=== PATIENT | female | born 1985 | race Caucasian/White ===

== ENCOUNTER 2019-04-19 17:24 | Outpatient (CLI) | payer MEDICAID ==
--- NOTE | 2019-04-19 19:58 | Ultrasound Report ---
Reason: TEST POSITIVE Procedure Date: 04/19/2019 Accession Number: [id number] / [id number] Procedure: US - OB First Trimester CPT Code: Final Report FULL RESULT: EXAM: FIRST TRIMESTER OBSTETRIC ULTRASOUND (Less than 11 weeks) EXAM DATE: 04/19/2019 06:10 PM. CLINICAL HISTORY: Size and dates. LMP: 02/19/2019. COMPARISONS: None. TECHNIQUE: Transabdominal and transvaginal ultrasound examination with static image documentation. CLINICAL DATES: EGA 8 weeks 3 days with KRISTI 11/26/2019 based on LMP. ASSESSMENT: Gestational Sac: Single intrauterine. Mean gestational sac diameter: 33.7 mm = 8 weeks 4 days. Embryo: CRL (crown-rump length) 20.6 mm = 8 weeks 5 days. Cardiac activity: 172 beats per minute. Yolk sac: 5.4 mm. Amniotic fluid: Not accurately assessed at this gestational age. Early placenta: Not visible at this gestational age. Other: Perigestational fluid collection measuring 19 x 18 mm. MATERNAL STRUCTURES: Uterus: Anteverted. Unremarkable. Cervix: Closed. Right Ovary/Adnexa: The ovary measures 2.4 x 1.6 x 2.0 cm, volume 4.1 cc. Unremarkable. Left Ovary/Adnexa: The ovary measures 4.0 x 2.5 x 1.9 cm, volume 9.9 cc. Unremarkable. Corpus luteum measuring 1.8 x 1.8 x 1.2 cm. Free Fluid: None. Other: None. IMPRESSION: 1. Single viable intrauterine at EGA 8 weeks 5 days with KRISTI 11/24/2019 based on crown-rump length, which is concordant with clinical dates. 2. Assigned dating is KRISTI 11/26/2019 based on current ultrasound. RADIA
== END 2019-04-19 17:25 | disposition home or self-care (01) ==
LOC: DI 17:24
PROVIDERS: ATTEND Obstetrics & Gynecology
DX: Z32.01 Encounter for pregnancy test, result positive (principal)
CPT/HCPCS: 76801; 76817

== ENCOUNTER 2019-05-08 08:00 | Outpatient (CLI) | payer MEDICAID ==
[2019-05-08 15:29] LABS: MUDS CUTOFF CONCENTRATIONS CUTOFF CONC BELOW:
[2019-05-08 15:55] LABS: BILIRUBIN,URINE NEGATIVE (NEGATIVE); GLUCOSE, URINE (UA) NEGATIVE (NEGATIVE); KETONES,URINE (UA) NEGATIVE (NEGATIVE); LEUKOCYTE ESTERASE, URINE NEGATIVE (NEGATIVE); NITRITE,URINE NEGATIVE (NEGATIVE); OCCULT BLOOD,URINE NEGATIVE (NEGATIVE); PROTEIN,URINE NEGATIVE (NEGATIVE); UROBILINOGEN,URINE 0.2 (NORMAL) E.U./dL (NORMAL)
[2019-05-08 16:01] LABS: CLARITY,URINE CLOUDY (CLEAR)
[2019-05-08 16:13] LABS: BACTERIA,URINE None Seen /HPF (None Seen); MUCUS,URINE Moderate Strands; RBC,URINE None Seen /HPF (0-5); SQUAMOUS EPITHELIAL CELL,UR FEW Squamous (<= Few)
[2019-05-08 16:14] LABS: AMPHETAMINE SCREEN,URINE NEGATIVE (NEGATIVE); BENZODIAZEPINES SCREEN, URINE NEGATIVE (NEGATIVE); COCAINE SCREEN URINE NEGATIVE (NEGATIVE); METHADONE SCREEN, URINE NEGATIVE (NEGATIVE); METHAMPHETAMINES SCREEN, URINE NEGATIVE (NEGATIVE); OPIATE SCREEN, URINE NEGATIVE (NEGATIVE); OXYCODONE SCREEN, URINE NEGATIVE (NEGATIVE); PROPOXYPHENE SCREEN, URINE NEGATIVE (NEGATIVE); TRICYCLIC ANTIDEPRESSANT,URINE NEGATIVE (NEGATIVE)
[2019-05-08 20:59] LABS: TRICHOMONAS VAGINALIS DNA NEGATIVE (NEGATIVE)
== END 2019-05-08 23:59 | disposition home or self-care (01) ==
LOC: LAB.R 08:00
PROVIDERS: ATTEND Nurse Practitioner Obstetrics & Gynecology
DX: Z36.89 Encounter for other specified antenatal screening (principal)
CPT/HCPCS: 80306; 81001; 87086; 87491; 87591; 87661

== ENCOUNTER 2019-05-08 10:58 | Outpatient (CLI) | payer MEDICAID ==
[2019-05-08 11:47] LABS: BASOPHILS # (AUTO) 0.1 10^3/uL (0.0-0.1); BASOPHILS % (AUTO) 0.6 %; EOSINOPHILS # (AUTO) 0.3 10^3/uL (0.0-0.7); EOSINOPHILS % (AUTO) 3.4 %; HGB - HEMOGLOBIN 12.4 g/dL (12.0-16.0); LYMPHOCYTES # (AUTO) 1.5 10^3/uL (1.5-3.5); LYMPHOCYTES % (AUTO) 18.7 %; MEAN CORPUSCULAR HEMOGLOBIN 31.4 pg (27.0-31.0); MEAN CORPUSCULAR HGB CONC 34.9 g/dL (32.0-36.0); MEAN CORPUSCULAR VOLUME 89.9 fL (81.0-99.0); MEAN PLATELET VOLUME 11.2 fL (7.9-10.8); MONOCYTES # (AUTO) 0.5 10^3/uL (0.0-1.0); MONOCYTES % (AUTO) 5.9 %; NEUTROPHILS # (AUTO) 5.8 10^3/uL (1.5-6.6); PLT - PLATELET COUNT 245 10^3/uL (130-450); RED BLOOD COUNT 3.95 10^6/uL (4.20-5.40); RED CELL DISTRIBUTION WIDTH 12.9 % (12.0-15.0); WHITE BLOOD COUNT 8.1 x10^3/uL (4.8-10.8)
[2019-05-11 10:46] LABS: HIV AG/AB 4TH GEN NON-REACTIVE (NON-REACTIVE)
[2019-05-11 12:36] LABS: HEPATITIS B SURFACE ANTIGEN NON-REACTIVE (NON-REACTIVE); HEPATITIS C ANTIBODY NON-REACTIVE (NON-REACTIVE)
== END 2019-05-08 10:59 | disposition home or self-care (01) ==
LOC: LAB 10:58
PROVIDERS: ATTEND Nurse Practitioner Obstetrics & Gynecology
DX: Z36.89 Encounter for other specified antenatal screening (principal); Z36.8A Encounter for antenatal screening for other genetic defects
CPT/HCPCS: 36415; 80306; 81001; 81220; 81329; 81599; 85025; 86592; 86762; 86803; 86850; 86900; 86901; 87340; 87389; 87491; 87591; 87661

== ENCOUNTER 2019-06-21 08:00 | Outpatient (CLI) | payer MEDICAID | END 2019-06-21 23:59 | disposition home or self-care (01) | LOC: LAB 08:00 | PROVIDERS: ATTEND Obstetrics & Gynecology | DX: Z36.0 Encounter for antenatal screening for chromosomal anomalies (principal); Z36.89 Encounter for other specified antenatal screening | CPT/HCPCS: 36415; 81511; 81599 ==

== ENCOUNTER 2019-07-08 09:59 | Outpatient (CLI) | payer MEDICAID ==
--- NOTE | 2019-07-08 14:13 | Ultrasound Report ---
Reason: SUPERVISION OF NORMAL MULTIGRAVIDA PREG, 2ND TRIME Procedure Date: 07/08/2019 Accession Number: [id number] / [id number] Procedure: US - OB Detailed Eval CPT Code: Final Report FULL RESULT: EXAM: COMPLETE OBSTETRICAL ULTRASOUND EXAM DATE: 07/08/2019 12:59 PM. CLINICAL HISTORY: anatomic survey. COMPARISON: OB FIRST TRIMESTER 04/19/2019 5:36 PM. TECHNIQUE: Real-time sonographic evaluation of the fetus performed by the coin machine supervisor. Multiple hostess party sales representative static images were saved for review. DATING: Established EGA 19 weeks 6 days with KRISTI 11/26/2019 based on LMP. EGA 20 weeks 1 day with KRISTI 11/24/2019 based on the current ultrasound. GENERAL EVALUATION [place] . Cardiac activity: 154 bpm. movement: Visualized. Presentation: Variable. Placenta: Posterior position. No evidence for previa. Umbilical cord: 3 vessel cord. Central placental cord origin. Amniotic fluid: Subjectively normal. MVP 4.7 cm with JOSELYN 16.8 cm. BIOMETRY Bi-Parietal Diameter (BPD): 4.7 cm, 20 weeks 1 day Head Circumference (HC): 17.7 cm, 20 weeks 1 day Abdominal Circumference (AC): 14.7 cm, 20 weeks 0 days Femur Length (FL): 3.2 cm, 20 weeks 0 days Estimated Weight: 325 g, 53rd percentile for 19 weeks 6 days. ANATOMY The intracranial structures, profile, face/nose/lips, spine, 4 chamber heart and outflow tracts, stomach, abdominal wall and cord insertion, diaphragm, kidneys, bladder, and extremities were visualized and demonstrate no abnormality. MATERNAL STRUCTURES Uterus: Unremarkable. Cervix: Long and closed. Transabdominal length 4.0 cm. Right ovary/adnexa: Unremarkable. Left ovary/adnexa: Unremarkable. Free fluid: None. IMPRESSION: 1. Hudson live intrauterine with gestational age 19 weeks 6 days based on LMP. 2. Estimated weight is within expected limits for assigned dating. 3. Normal anatomic survey. No anatomic abnormalities are detected at this time. RADIA
== END 2019-07-08 10:00 | disposition home or self-care (01) ==
LOC: DI 09:59
PROVIDERS: ATTEND Obstetrics & Gynecology
DX: Z34.82 Encounter for supervision of other normal pregnancy, second trimester (principal)
CPT/HCPCS: 76811

== ENCOUNTER 2019-08-19 09:46 | Outpatient (CLI) | payer MEDICAID ==
[2019-08-19 11:17] LABS: HGB - HEMOGLOBIN 11.9 g/dL (12.0-16.0); MEAN CORPUSCULAR HEMOGLOBIN 30.9 pg (27.0-31.0); MEAN CORPUSCULAR HGB CONC 33.2 g/dL (32.0-36.0); MEAN PLATELET VOLUME 11.2 fL (7.9-10.8); RED BLOOD COUNT 3.85 10^6/uL (4.20-5.40); RED CELL DISTRIBUTION WIDTH 13.6 % (12.0-15.0); WHITE BLOOD COUNT 10.6 x10^3/uL (4.8-10.8)
== END 2019-08-19 09:47 | disposition home or self-care (01) ==
LOC: LAB 09:46
PROVIDERS: ATTEND Nurse Practitioner Obstetrics & Gynecology
DX: Z36.89 Encounter for other specified antenatal screening (principal)
CPT/HCPCS: 36415; 82950; 85027; 86850

== ENCOUNTER 2019-10-28 07:00 | Outpatient (CLI) | payer MEDICAID, OTHER ==
[2019-10-28 22:49] LABS: TRICHOMONAS VAGINALIS DNA NEGATIVE (NEGATIVE)
== END 2019-10-28 23:59 | disposition home or self-care (01) ==
LOC: LAB.R 07:00
PROVIDERS: ATTEND Advanced Practice Midwife
DX: Z34.90 Encounter for supervision of normal pregnancy, unspecified, unspecified trimester (principal); Z36.85 Encounter for antenatal screening for Streptococcus B
CPT/HCPCS: 87491; 87591; 87661; 87797

== ENCOUNTER 2019-12-03 06:22 | Inpatient (IN) | payer OTHER, MEDICAID ==
[2019-12-03] MEDS ORDERED: SODIUM CHLORIDE FLUSH 0.9% 10 ML SYRINGE IVP PRN ×2 (06:26→15:12)
[2019-12-03] MEDS ORDERED: miSOPROStoL 200 MCG TABLET ONE (07:31)
[2019-12-03] MEDS ORDERED: LIDOCAINE-MPF 1% 30 ML VIAL ONE (07:31)
[2019-12-03] MEDS ORDERED: OXYTOCIN/SODIUM CHLORIDE 500 ML IV PRN (07:32)
[2019-12-03] MEDS ORDERED: TERBUTALINE 1 MG/ML VIAL SUBQ ONE (07:32)
[2019-12-03] MEDS ORDERED: MINERAL OIL LIGHT 10 ML MC PRN (07:32)
[2019-12-03] MEDS ORDERED: CARBOPROST TROMETHAMINE 250 MCG/ML AMP IM PRN (07:32)
[2019-12-03] MEDS ORDERED: MINERAL OIL LIGHT 10 ML MC ONE (07:32)
[2019-12-03] MEDS ORDERED: miSOPROStoL 200 MCG TABLET PR PRN (07:32)
[2019-12-03] MEDS ORDERED: METHYLERGONOVINE 0.2 MG/ML VIAL IM PRN (07:32)
[2019-12-03] MEDS ORDERED: TRANEXAMIC ACID 1,000 MG in SODIUM CHLORIDE 0.9% 100ML 100 ML IV PRN (07:32)
[2019-12-03] MEDS ORDERED: OXYTOCIN/SODIUM CHLORIDE 500 ML IV ONE (07:32)
[2019-12-03] MEDS ORDERED: LIDOCAINE-MPF 1% 30 ML VIAL ID PRN (07:32)
[2019-12-03] MEDS: LACTATED RINGERS 1,000 ML IV SCH ×2 (07:33→11:21)
--- NOTE | 2019-12-03 07:39 | HISTORY & PHYSICAL EXAMINATION ---
Admit History - Visit Reason Visit Reason: Contractions - : 3 Parity: 1 Premature: 0 Ectopic: 0 : 1 Care: positive: [facility] Risk/History: positive: None Complications This : positive: None Smoking Status: Current every day smoker - Mother's Labs Mother's Blood Type: positive: A Mother's RH: positive: Positive GBS: positive: Group B Step Negative Rubella Status: positive: Immune - Other Maternal History Other Maternal History: This 34yo at 41.0wks presents to triage for labor evaluation following a full day of contractions that intensified early this morning. She was scheduled for an induction of labor today. Dating Criteria: - 8.3wk ultrasound c/w LMP Complications: - None OB Hx: G1: 2007 40.0 wks - epidural. in 2010 d/t luekemia G2: 2009- 6wks G3: Current Medications: - Vitamin- daily - Zyrtec- 10mg PO- daily Allergies: - None Medical History: - Ovarian Cysts - Abnormal Pap - Headaches/Migraine Surgical History: - None Social History: - Non-contributory Labs: - A Positive - Rubella Immune - Genetic Screening- Serum Integrated Screen- Neg/ CF- neg/ SMA- neg - Glucola-107 Immunizations: - TDAP 09/10/2019 Assessment: -34yo at 41.0 wks presents to triage in early active labor Plan: - Admit to inpatient - Continuous Monitoring - May eat/drink/ambulate to comfort - Whirlpool bath, fentanyl, and epidural available. - Anticipate Meds/Allgy - Allergies Allergies/Adverse Reactions: Allergies Allergy/AdvReac Type Severity Reaction Status Date / Time No Known Drug Allergies Allergy Verified 12/03/19 06:26 Review of Systems - Constitutional Constitutional: denies: Fatigue, Fever, Diaphoresis - Eyes Eyes: denies: Blurred vision, Field loss, Dipolpia - Ears, Nose & Throat Ears, Nose & Throat: reports: Nasal discharge, Nasal congestion. denies: Hearing loss, Hearing aids, Sore throat - Cardiovascular Cariovascular: denies: Irregular heart rate, Palpitations, Chest pain, Edema, Syncope - Respiratory Respiratory: denies: Cough, Wheezing, SOB at rest, SOB with exertion, Apnea - Gastrointestinal Gastrointestinal: denies: Constipation, Diarrhea, Nausea, Vomiting - Genitourinary Genitourinary: denies: Frequency, Urgency, Incontinence - Musculoskeletal Musculoskeletal: reports: Back pain, Muscle aches, Stiffness (baseline hip pain worsened by labor) - Integumentary Integumentary: denies: Rash, Pruritis - Neurological Neurological: denies: General weakness, Headache, Dizziness, Numbness - Psychiatric Psychiatric: denies: Depression, Anxiety - All Other Systems All Other Systems: denies: Reviewed and negative Physical - Abdominal Exam Vital Signs: BP 121/77 P: 82 T: 36.6c Contraction Frequency (min/apart): 2-5 Contraction Intensity: positive: Moderate Uterine Resting Tone: positive: Soft - Monitoring Heart Rate Baseline: 155 Strip Review: positive: Category II - Presentation Presentation: positive: Vertex - Vaginal Exam Membranes: positive: Membranes intact Plan for Labor - Plan For Labor I expect patient to be DC'd or transferred within 96 hours.: Yes
[2019-12-03 07:52] LABS: BASOPHILS # (AUTO) 0.1 10^3/uL (0.0-0.1); BASOPHILS % (AUTO) 0.4 %; EOSINOPHILS # (AUTO) 0.4 10^3/uL (0.0-0.7); EOSINOPHILS % (AUTO) 3.7 %; HGB - HEMOGLOBIN 12.5 g/dL (12.0-16.0); LYMPHOCYTES # (AUTO) 2.1 10^3/uL (1.5-3.5); LYMPHOCYTES % (AUTO) 17.5 %; MEAN CORPUSCULAR HEMOGLOBIN 30.6 pg (27.0-31.0); MEAN CORPUSCULAR HGB CONC 34.1 g/dL (32.0-36.0); MEAN CORPUSCULAR VOLUME 89.7 fL (81.0-99.0); MEAN PLATELET VOLUME 12.6 fL (7.9-10.8); MONOCYTES # (AUTO) 0.7 10^3/uL (0.0-1.0); NEUTROPHILS # (AUTO) 8.5 10^3/uL (1.5-6.6); NEUTROPHILS % (AUTO) 71.9 %; PLT - PLATELET COUNT 185 10^3/uL (130-450); RED BLOOD COUNT 4.09 10^6/uL (4.20-5.40); RED CELL DISTRIBUTION WIDTH 13.3 % (12.0-15.0); WHITE BLOOD COUNT 11.7 x10^3/uL (4.8-10.8)
[2019-12-03] MEDS ORDERED: SODIUM CHLORIDE FLUSH 0.9% 10 ML SYRINGE IVP SCH ×2 (09:00→17:00)
[2019-12-03] MEDS ORDERED: ROPIVACAINE 0.2% 200 MG/100 ML BAG EP ONE (11:23)
[2019-12-03] MEDS ORDERED: METOCLOPRAMIDE 10 MG/2 ML VIAL IVP PRN (11:58)
[2019-12-03] MEDS ORDERED: diphenhydrAMINE INJ 50 MG/ML VIAL IVP PRN (11:58)
[2019-12-03] MEDS ORDERED: LACTATED RINGERS 500 ML IV ONE (11:58)
[2019-12-03] MEDS ORDERED: ROPIVACAINE 0.2% 200 MG/100 ML BAG EP PRN (11:58)
[2019-12-03] MEDS ORDERED: ePHEDrine 50 MG/ML VIAL IVP PRN (11:58)
[2019-12-03] MEDS ORDERED: NALBUPHINE 10 MG/ML AMP IVP PRN (11:58)
[2019-12-03] MEDS ORDERED: NALOXONE 0.4 MG/ML VIAL IVP PRN (11:58)
[2019-12-03] MEDS ORDERED: ONDANSETRON 4 MG/2 ML VIAL IVP PRN (11:58)
--- NOTE | 2019-12-03 12:02 | ANESTHESIA ---
Pre-Anesthesia VS, & Labs - Diagnosis labor - Procedure epidural for labor Vital Signs: Temp Pulse Resp BP Pulse Ox 36.6 C 83 20 121/77 12/03/19 07:30 12/03/19 07:30 12/03/19 07:30 12/03/19 07:30 Height 5 ft 4 in Weight (kg) 87.09 kg - NPO Other (this am, instructed to be clears from now on) - Is Patient ?: Yes - Lab Results Current Lab Results: Laboratory Tests 12/03/19 07:20: WBC 11.7 H, RBC 4.09 L, Hgb 12.5, Hct 36.7 L, MCV 89.7, MCH 30.6, MCHC 34.1, RDW 13.3, Plt Count 185, MPV 12.6 H, Neut # (Auto) 8.5 H, Lymph # (Auto) 2.1, [place] # (Auto) 0.7, Eos # (Auto) 0.4, Baso # (Auto) 0.1, Absolute Nucleated RBC 0.00, Nucleated RBC % 0.0 Fish Bones: 12/03/19 07:20 Home Medications and Allergies Active Medications Carboprost Tromethamine (Hemabate) 250 mcg IM ONCE PRN PRN Reason: NEEDED PER PROVIDER ORDERS Stop: 12/06/19 07:31 Diphenhydramine HCl (Benadryl Inj) 12.5 - 25 mg IVP Q6HR PRN PRN Reason: ITCHING Ephedrine Sulfate () 5 mg IVP Q5M PRN PRN Reason: For SBP<100;give until SBP>100 Lactated Ringer's (Lr) 1,000 mls @ 100 mls/hr IV .Q10H PARISH Last Admin: 12/03/19 11:21 Dose: 100 mls/hr Documented by: Tranexamic Acid 1,000 mg/ (Sodium Chloride) 110 mls @ 660 mls/hr IV PRN PRN PRN Reason: PER PHYSICIAN ORDER Oxytocin/Sodium Chloride (Pitocin/Sodium Chloride) 500 mls @ 999 mls/hr IV PRN PRN; Protocol PRN Reason: POST- HEMORR PREVENTION Lactated Ringer's (Lr) 500 mls @ 999 mls/hr IV ONCE ONE Stop: 12/03/19 12:28 Ropivacaine (Naropin 0.2%) 200 mg in 100 mls @ 0 mls/hr EP PRN PRN; Protocol PRN Reason: PAIN Lidocaine HCl (Xylocaine-Mpf 1% Vial) 30 ml ID ONCE PRN PRN Reason: PERINEAL REPAIR Stop: 12/05/19 07:31 Methylergonovine Maleate (Methergine Inj) 0.2 mg IM ONCE PRN PRN Reason: NEEDED PER PROVIDER ORDERS Stop: 12/05/19 07:31 Metoclopramide HCl (Reglan Inj) 10 mg IVP Q6HR PRN PRN Reason: Nausea / Vomiting Mineral Oil (Muri-Lube) 10 ml MC ONCE PRN PRN Reason: NEEDED PER PROVIDER ORDERS Stop: 12/05/19 07:31 Misoprostol (Cytotec) 800 mcg NE ONCE PRN PRN Reason: NEEDED PER PROVIDER ORDERS Stop: 12/06/19 07:31 Nalbuphine HCl (Nubain) 2.5 - 5 mg IVP Q4H PRN PRN Reason: ITCHING Naloxone HCl (Narcan) 0.1 mg IVP Q2M PRN PRN Reason: RR<8 Ondansetron HCl (Zofran Inj) 4 mg IVP Q6HR PRN PRN Reason: Nausea / Vomiting Sodium Chloride (Normal Saline Flush 0.9%) 10 ml IVP 0100,0900,1700 PARISH Last Admin: 12/03/19 10:51 Dose: 10 ml Documented by: Sodium Chloride (Normal Saline Flush 0.9%) 10 ml IVP PRN PRN PRN Reason: NEEDED PER PROVIDER ORDERS Last Admin: 12/03/19 07:20 Dose: 10 ml Documented by: Allergies/Adverse Reactions: Allergies Allergy/AdvReac Type Severity Reaction Status Date / Time No Known Drug Allergies Allergy Verified 12/03/19 06:26 Anes History & Medical History - Anesthetic History Anesthesia Complications: reports: No previous complications - Medical History Cardiovascular: reports: None Pulmonary: reports: None Gastrointestinal: reports: None Smoking Status: Current every day smoker - Obstetrical History : 3 Parity: 1 Events: positive: None Complications: positive: None Exam General: Alert Dental: WNL Mouth Opening: Greater than 4 Fingerbreadths Neck Mobility: Normal Mallampati classification: II Respiratory: Lungs clear Cardiovascular: Regular rate Mental/Cognitive Status: Alert/Oriented X3 Plan Anesthesia Type: Epidural Consent for Procedure(s) Verified and Reviewed: Yes Code Status: Attempt Resuscitation ASA classification: 2-Mild systemic disease Is this case an emergency?: No
[2019-12-03] MEDS ORDERED: CITRIC ACID/SODIUM CITRATE 15 ML UDC PO ONE ×2 (13:10→13:22)
[2019-12-03] MEDS ORDERED: ceFAZolin 1 GM VIAL ONE (13:24)
[2019-12-03] MEDS ORDERED: BUPIVACAINE 0.25% PF 30 ML VIAL ONE (14:28)
[2019-12-03] MEDS ORDERED: LACTATED RINGERS 1,000 ML IV ONE ×3 (14:36→14:59)
[2019-12-03] MEDS ORDERED: ONDANSETRON ODT 4 MG TABLET TL PRN (15:12)
--- NOTE | 2019-12-03 15:21 | OPERATIVE REPORT ---
Operative Report - General Admit Date: 12/03/19 Procedure Date: 12/03/19 Planned Procedure: PLTC/S Pre-Op Diagnosis: repeditive Late decelerations Procedure Performed: PLTC/S Post Op Diagnosis: tight nucal cord x 2, true nots - Procedure Note Primary Surgeon: Sushil Moreno MD Secondary Surgeon: Jojo Upton CNM Anesthesia Provider: Stephanie Fuller CRNA Anesthesia Technique: Epidural Pathology: Placenta IV Fluids (mL): 1,000 Estimated Blood Loss (mL): 600 Urine Output (mL): 600 Findings: female vertex 11/18. tight nucal cord X 2, true knot, thick mech - Other Other Information/Narrative: [id number]
[2019-12-03] MEDS ORDERED: LACTATED RINGERS 1,000 ML IV SCH (16:00)
--- NOTE | 2019-12-03 18:33 | OPERATIVE REPORT ---
DATE OF SERVICE: 12/03/2019 Physician: Sushil Moreno MD PREOPERATIVE DIAGNOSES 1. Term cyesis. 2. Repetitive late decelerations. 3. Spontaneous rupture of membranes. POSTOPERATIVE DIAGNOSES 1. Term cyesis. 2. Repetitive late decelerations. 3. Spontaneous rupture of membranes. 4. Tight nuchal cord x2 and true knot. 5. Thick meconium. PROCEDURE PERFORMED: Primary low transverse section. SURGEON: Sushil Moreno MD BODY REPAIRER: Aisha Upton, Certified Nurse Case Specialist. ANESTHESIA PROVIDER: Adele Fuller CRNA ANESTHETIC: Epidural. PATHOLOGY: Placenta. INTRAVENOUS FLUIDS: 1000 mL ESTIMATED BLOOD LOSS: 600 mL URINE OUTPUT: 600 mL FINDINGS: Live female infant, vertex presentation. Thick meconium. Tight nuchal cord x2 with true knot in cord. PROCEDURE IN DETAIL: Following adequate epidural anesthesia, patient was placed in the supine position with a roll under right hip. She was then prepped with Hibiclens and draped in the usual fashion. Following a timeout, a Pfannenstiel incision was carried down through subcutaneous tissue to the fascia. The fascia was incised transversely, then using both blunt and sharp dissection, it was freed from rectus abdominis and pyramidalis. Rectus was split along the midline. Peritoneum entered high. Following this, it was carried superior and inferior with Metzenbaum scissors. A bladder flap was then developed using both blunt and sharp dissection. At this point, a low transverse uterine incision was accomplished using a #10 blade, bandage scissors, and finger spread technique. The left shoulder and hand delivered through this incision, following which the arm was reduced, and then utilizing the nurse, the head was pushed out of the pelvis and delivered through the incision. At this point, a tight nuchal cord was encountered and reduced. There was also a true knot noted, which was loose. The cord was doubly clamped, divided, and was handed to the tie binder that was standing by. At this point, a segment of cord, which included the knot, was clamped and set aside for cord blood gases. Cord blood samples were obtained and, following this, the placenta was manually delivered. The uterus was exteriorized and cleansed in the internal portion with a dry lap. At this point, the lower portion of the incision was grasped with ring forceps. Care was taken to remove all the membranes as well as placental tissue and the incision was then closed using a running locking suture of 0 Vicryl and an imbricating layer of 0 Vicryl. [id number] were used to reinforce the left corner of the incision as well as the left side of the incision. Good hemostasis was observed. A rolled moist lap sponge was then placed over this. The uterus was tipped forward and the cul-de-sac was irrigated suction free of any clot. Estimation of blood loss was made at that time following this, the cul-de-sac was irrigated with copious amounts of sterile saline. The uterus was delivered back in the abdominal cavity, and the gutters were also irrigated with copious amounts of sterile saline. At this point, the incision was reinspected and noted to be dry without evidence of any further bleeding. The uterus was delivered back in the abdominal cavity. Peritoneum was closed using 2-0 Vicryl. The rectus was reapproximated with 2 [id number] of 2-0 Vicryl. The rectus was irrigated. No bleeding noted, so the fascia was closed utilizing a looped PDS. The subcutaneous tissue was closed utilizing 2-0 Vicryl and the incision itself was closed using 4-0 Monocryl. The incision was then closed utilizing Dermabond. The incision appeared to be clean and dry at this point. The uterus was then expressed free of any clot. Patient tolerated the procedure well and was taken to recovery in stable condition. Sponge and needle counts were correct. TD: 12/03/2019 15:46 KLAUDIA
[2019-12-03] MEDS: ACETAMINOPHEN 500 MG TABLET PO SCH (18:55)
[2019-12-03] MEDS: SIMETHICONE CHEW 80 MG TABLET PO SCH (21:42)
[2019-12-03] MEDS: KETOROLAC 30 MG/ML VIAL IVP SCH (21:42)
[2019-12-03] MEDS: DOCUSATE SODIUM 100 MG CAPSULE PO SCH (21:42)
[2019-12-04] MEDS: oxyCODONE 5 MG TABLET PO PRN ×4 (02:23→23:41)
[2019-12-04] MEDS: ACETAMINOPHEN 500 MG TABLET PO SCH ×3 (02:23→18:06)
[2019-12-04] MEDS: KETOROLAC 30 MG/ML VIAL IVP SCH ×3 (03:42→16:00)
[2019-12-04 06:22] LABS: BASOPHILS # (AUTO) 0.1 10^3/uL (0.0-0.1); BASOPHILS % (AUTO) 0.5 %; EOSINOPHILS # (AUTO) 0.2 10^3/uL (0.0-0.7); EOSINOPHILS % (AUTO) 1.5 %; HGB - HEMOGLOBIN 10.9 g/dL (12.0-16.0); LYMPHOCYTES # (AUTO) 1.8 10^3/uL (1.5-3.5); MEAN CORPUSCULAR HGB CONC 34.5 g/dL (32.0-36.0); MEAN CORPUSCULAR VOLUME 92.7 fL (81.0-99.0); MEAN PLATELET VOLUME 12.4 fL (7.9-10.8); MONOCYTES # (AUTO) 0.7 10^3/uL (0.0-1.0); MONOCYTES % (AUTO) 6.2 %; NEUTROPHILS % (AUTO) 74.1 %; PLT - PLATELET COUNT 149 10^3/uL (130-450); RED BLOOD COUNT 3.41 10^6/uL (4.20-5.40); RED CELL DISTRIBUTION WIDTH 13.5 % (12.0-15.0); WHITE BLOOD COUNT 10.8 x10^3/uL (4.8-10.8)
[2019-12-04] MEDS: DOCUSATE SODIUM 100 MG CAPSULE PO SCH ×2 (08:31→23:39)
[2019-12-04] MEDS: SIMETHICONE CHEW 80 MG TABLET PO SCH ×3 (08:31→23:41)
--- NOTE | 2019-12-04 10:17 | PROVIDER PROGRESS NOTE ---
Subjective - General Admit Date: 12/03/19 Procedure Date: 12/03/19 Post Op Days: 1 Procedure Performed: emergency PLTC/S - Review of Systems Wound/Incisions: positive: Healing well General: positive: No symptoms (Pain 2/10. nmilk not in yet) Gastrointestinal: positive: Flatus Genitourinary: positive: No symptoms All Other Systems: negative: Reviewed and negative Objective - Patient Data Reviewed Vital Signs: Yes Vital Signs: Vital Signs x48h Temp Pulse Resp BP Pulse Ox 12/04/19 08:01 36.6 C 86 16 118/70 99 12/04/19 03:45 37.0 C 83 16 114/67 97 Weight: Weight 12/02/19 12/03/19 12/04/19 23:59 23:59 23:59 Weight (kg) 87.09 kg Intake & Output: Intake and Output Totals x24h 12/02/19 12/03/19 12/04/19 23:59 23:59 23:59 Intake Total 1192.5 Output Total 1025 900 Balance 167.5 -900 - Lab Results Lab Results: 12/04/19 06:06 Other Lab Results: Lab Results x24hrs 12/04/19 Range/Units 06:06 WBC 10.8 (4.8-10.8) x10^3/uL RBC 3.41 L (4.20-5.40) 10^6/uL Hgb 10.9 L (12.0-16.0) g/dL Hct 31.6 L (37.0-47.0) % MCV 92.7 (81.0-99.0) fL MCH 32.0 H (27.0-31.0) pg MCHC 34.5 (32.0-36.0) g/dL RDW 13.5 (12.0-15.0) % Plt Count 149 (130-450) 10^3/uL MPV 12.4 H (7.9-10.8) fL Neut # (Auto) 8.0 H (1.5-6.6) 10^3/uL Lymph # (Auto) 1.8 (1.5-3.5) 10^3/uL Walsh # (Auto) 0.7 (0.0-1.0) 10^3/uL Eos # (Auto) 0.2 (0.0-0.7) 10^3/uL Baso # (Auto) 0.1 (0.0-0.1) 10^3/uL Absolute Nucleated RBC 0.00 x10^3/uL Nucleated RBC % 0.0 /100WBC - Current Medications Current Medications: Current Medications Generic Name Dose Route Start Last Admin Trade Name Freq PRN Reason Stop Dose Admin Acetaminophen 1,000 mg 12/03/19 16:00 12/04/19 10:08 Tylenol PO 1,000 mg Q8H PARISH Administration Docusate Sodium 100 mg 12/03/19 21:00 12/04/19 08:31 Colace 100mg Capsule PO 100 mg BID PARISH Administration Ketorolac Tromethamine 30 mg 12/03/19 22:00 12/04/19 10:08 Toradol Inj (30mg) IVP 12/04/19 16:01 30 mg Q6H PARISH Administration Oxycodone HCl 5 mg 12/03/19 15:12 12/04/19 08:31 Roxicodone PO 5 mg Q4HR PRN Administration PAIN Simethicone 80 mg 12/03/19 22:00 12/04/19 08:31 Mylicon PO 80 mg TID PARISH Administration Sodium Chloride 10 ml 12/03/19 17:00 12/04/19 10:08 Normal Saline Flush 0.9% IVP 10 ml 0100,0900,1700 PARISH Administration - Physical Exam Wound/Incisions: positive: Healing well, Dressing dry and intact General Appearance: positive: No acute distress, Alert Respiratory: positive: Chest non-tender, No respiratory distress Cardiovascular: positive: Regular rate & rhythm, No murmur, No gallop Abdomen: positive: Non-tender, Nml bowel sounds, No distention, Mass (@ U) Back: negative: CVA tenderness (R), CVA tenderness (L) Extremities: negative: Calf tenderness, Stefani's sign/cords Impression/Plan - Problem List Problem List: POD #1 progressing well. good pain control. continue care.
[2019-12-04] MEDS: IBUPROFEN 600 MG TABLET PO PRN ×2 (16:13→23:41)
[2019-12-05] MEDS: ACETAMINOPHEN 500 MG TABLET PO SCH ×2 (02:19→10:39)
[2019-12-05] MEDS: oxyCODONE 5 MG TABLET PO PRN ×2 (04:43→09:19)
[2019-12-05] MEDS: IBUPROFEN 600 MG TABLET PO PRN (07:16)
[2019-12-05 08:18] VITALS: BP 112/65
[2019-12-05] MEDS: DOCUSATE SODIUM 100 MG CAPSULE PO SCH (09:19)
[2019-12-05] MEDS: SIMETHICONE CHEW 80 MG TABLET PO SCH (09:20)
--- NOTE | 2019-12-05 11:03 | Labor Flowsheet ---
Labor Flowsheet Datetime Report Generated by CPN: 12/05/2019 11:03 Datetime: 12/05/2019 07:57 VITAL SIGNS NBP Sys/Nata/Mean (mmHg): 112 : 65 : 76 Pulse: 79 LaborFlag: Labor Datetime: 12/04/2019 08:05 SpO2 (%): 99 Datetime: 12/03/2019 15:39 Membranes Ruptured Date/Time: 12/03/2019 12:30 Datetime: 12/03/2019 13:26 UTERINE ACTIVITY Monitor Mode: External Monitor Interventions for UA: [place] Adjusted Frequency (min): 1.5-3 Quality: Strong Duration (sec): 60-80 Pattern: Normal: <= 5 Contractions in 10 Minutes Resting Tone (Palpate): Relaxed ASSESSMENT A Monitor Mode: Telemetry FHR Baseline Rate : 160 Variability: Minimal - Undetectable to <=5 bpm Decelerations: Late; Variable Category: Category II Comments: Steve presented this morning in early labor for her scheduled medical induction. FHR 15 0-165 with minimal variability and variable decels that are reoccurrent. Over the course of the morn ing FHR continued to have minimal variability and reoccurrent late decels. Steve remained mobile wi th frequent position changes. Patient given 2 boluses of LR. Steve making slow progress over the m orning. Epidural placed for pain control with good relief. Continue to turn from side to side witho ut resolving decelerations. Dr Moreno called to consult on patient and determination made for c-sectio n as Steve is remote from delivery with a persistent category II tracing. EFM off and patient trans ferred to the OR via bed for Primary . heart tones in the OR 160's. Oxygen Method: Room Air Datetime: 12/03/2019 13:20 MEDICATIONS Antiemetics/Antacids: Bicitra 30 ml PO Datetime: 12/03/2019 13:15 Accelerations: None Datetime: 12/03/2019 13:14 COMMUNICATION Communication: Provider at Bedside Provider Notified (Name): Dr Giem/Aisha Upton MD SENIOR RESEARCH SCIENTIST Communication Comments: Consent for Datetime: 12/03/2019 12:42 VAGINAL EXAM Dilatation (cm): 5.0 Effacement (%): 90 Station: -1 Exam by: Aisha Upton CNM Vaginal Bleeding: Moderate Cervix, Consistency: Soft Cervix, Position: Midposition Datetime: 12/03/2019 12:33 Respirations: 18 Temperature (C): 37.0 Patient Position/Activity: Left Lateral Patient Care Comments: peanut ball between knees Datetime: 12/03/2019 12:30 Membrane Status: Ruptured Membranes Rupture Method: Spontaneous Amniotic Fluid Color: Bloody Amniotic Fluid Amount: Small Amniotic Fluid Odor: Normal Membrane Comments: Small amount of bloody fluid noted Datetime: 12/03/2019 11:59 I/O Interventions: James Cath Inserted Datetime: 12/03/2019 11:48 Epidural Procedure: Loading Dose Epidural Procedure Other: Pump Started Datetime: 12/03/2019 11:45 Monitor Interventions for FHR: Ultrasound Adjusted Datetime: 12/03/2019 11:30 Anesthesia Comments: placing epidural needle Datetime: 12/03/2019 11:25 PROCEDURE TIME OUT Procedure Verify: Correct Patient Identity; Correct Side and Site are Marked; Agreement on Procedur e to be Done; Correct Patient Position ANESTHESIA Anesthesia Plans: Epidural Epidural Positioning: Sitting Datetime: 12/03/2019 11:20 PATIENT CARE IV/Blood Work: IV Bolus Given ml @ 500; New IV Bag Hung; IV Bag Number @ 2 Datetime: 12/03/2019 10:51 Stage of : Labor Temperature Route: Oral Datetime: 12/03/2019 10:45 FHR Baseline Changes: No Baseline Change Datetime: 12/03/2019 09:26 Pain Assessment Comments: tub filling Datetime: 12/03/2019 08:40 Pain Presence: Intermittent Pain Type: Cramping Pain Location: Abdomen Pain Relief Measures: Comfort Measures Pain Coping: Breathing Through Contractions Comfort Measures: Breathing/Relaxation; Family Support Datetime: 12/03/2019 07:38 PAIN Pain Scale: 6 Pain Goal: 8
--- NOTE | 2019-12-05 21:06 | PROVIDER PROGRESS NOTE ---
Subjective - General Admit Date: 12/03/19 Procedure Date: 12/03/19 Post Op Days: 2 Procedure Performed: emergency PLTC/S - Review of Systems Wound/Incisions: positive: Healing well, Dressing dry and intact General: positive: No symptoms (Pain 2/10. milk not in yet. voiding , desires to go home) Gastrointestinal: positive: Flatus Genitourinary: positive: No symptoms All Other Systems: negative: Reviewed and negative Objective - Patient Data Reviewed Vital Signs: Yes Weight: Weight 12/03/19 12/04/19 12/05/19 23:59 23:59 23:59 Weight (kg) 87.09 kg Intake & Output: Intake and Output Totals x24h 12/03/19 12/04/19 12/05/19 23:59 23:59 23:59 Intake Total 1192.5 400 Output Total 1025 1600 Balance 167.5 -1200 - Lab Results Lab Results: 12/04/19 06:06 - Physical Exam Wound/Incisions: positive: Healing well, Dressing dry and intact, No drainage General Appearance: positive: No acute distress Respiratory: positive: Chest non-tender, No respiratory distress, Breath sounds nml Cardiovascular: positive: Regular rate & rhythm, No murmur, No gallop Abdomen: positive: Non-tender, Nml bowel sounds, Mass (u-2) Back: negative: CVA tenderness (R), CVA tenderness (L) Extremities: negative: Calf tenderness Neurologic/Psychiatric: positive: Oriented x3 Impression/Plan - Problem List Problem List: POD # 2 excellent progress. Discharge meds oxycodone 5 mf motrin 800 mg miralax 17 gms RTC one week
--- NOTE | 2019-12-05 21:07 | Discharge Plan ---
Discharge Plan Problem Reviewed?: Yes Disposition: [facility]Xf Condition: Good Diet: Regular Activity Restrictions: pelvic rest 6wks Shower Restrictions: No Driving Restrictions: Yes (not while taking narcotics) No Smoking: If you smoke, Please STOP! Call for help.
--- NOTE | 2019-12-06 06:54 | DISCHARGE SUMMARY ---
Physician: Sushil Moreno MD DATE OF ADMISSION: 12/03/2019 DATE OF DISCHARGE: 12/05/2019 ADMITTING DIAGNOSES 1. A 34-year-old G3, P1 female at 40 weeks EGA. 2. Active labor. DISCHARGE DIAGNOSES 1. A 34-year-old G3, P1, 41 weeks EGA. 2. Repetitive late decelerations with distress. PROCEDURES 1. Emergency primary low transverse section. 2. Epidural. PRESENTING HISTORY: Patient is a 34-year-old female who was due for induction on the date of admission. She presented with contractions, which were intensifying over the morning. Her history is positive for an ultrasound at 8.3 weeks, which was compatible with her . Her course was unremarkable. She does have a history of having previously lost a 3 year old in 2010 due to leukemia. She transferred care to our clinic for the remainder of her . LABORATORIES: CBC on admission showed a white count of 11.7, hemoglobin 12.5, hematocrit was 36.7, platelets were 185. White count was 10.8, hemoglobin was 10.9, hematocrit was 31.6, platelets were 149. HOSPITAL COURSE: The patient was admitted. An epidural was placed. She was allowed to labor. She was felt to rupture and thought to be clear amniotic fluid. She developed repetitive late decelerations at only 5 cm. She had IV bolus and following observation of the repetitive late, decided to take her for a stat section. At time of delivery, a live female infant, vertex presentation with tight nuchal cord x2 and a true knot and thick meconium was delivered. Apgars were [address] [employer] was in attendance. Estimated blood loss at time of section was 600 mL. Her course was unremarkable. Diet was advanced. She was passing flatus. She did quite well. She was discharged to home on the second day postop. DISCHARGE MEDICATIONS 1. Oxycodone. 2. Motrin. 3. MiraLax. DISCHARGE INSTRUCTIONS: She was instructed to follow up in the clinic in one week. We discussed the fact that is not adequate contraception. She is told to watch for evidence of mastitis. TD: 12/05/2019 21:06 KLAUDIA
== END 2019-12-05 10:50 | disposition home or self-care (01) | DRG 788 ==
LOC: WFO 06:22 → FBP 06:24 → WFO 06:25 → FBP 06:26 → UNDODISIN 12-05 10:50
PROVIDERS: ADMIT Advanced Practice Midwife; ATTEND Obstetrics & Gynecology
PROC: 10D00Z1 Extraction of Products of Conception, Low, Open Approach (ICD-10-PCS; principal; 2019-12-03 13:30)
DX: O48.0 Post-term pregnancy (principal); O69.2XX0 Labor and delivery complicated by other cord entanglement, with compression, not applicable or unspecified; O77.0 Labor and delivery complicated by meconium in amniotic fluid; Z37.0 Single live birth; Z3A.41 41 weeks gestation of pregnancy
CPT/HCPCS: 36415; 85025; A9270; J7120

== ENCOUNTER 2020-02-29 14:31 | Outpatient (CLI) | payer OTHER, MEDICAID ==
--- NOTE | 2020-02-29 16:54 | Ultrasound Report ---
PROCEDURE: Pelvic w/Transvaginal INDICATIONS: ABN UTERINE BLEEDING TECHNIQUE: Real-time scanning was performed of the pelvic organs, with image documentation. Additional endovagi nal scanning was necessary due to incomplete visualization of the adnexal and endometrial structures by transabdominal scanning. COMPARISON: None. FINDINGS: Transabdominal scanning: Limited scanning through the kidneys shows no hydronephrosis. No pathologi c free abdominal or pelvic fluid. Endovaginal scanning: Uterus: Uterus is normal in size at 9.5 x 4.9 x 6.3 cm. The endometrium measures 4 mm in combined t hickness. In this patient with this given history, scrutiny is given to abnormal vascularity along t he endometrial stripe. None can be seen. Ovaries: The right ovary measures 3.5 x 1.6 x 2.8 cm and the left ovary measures 3.6 x 1.6 x 2.3 cm. No ovarian abnormalities are seen, with less than 12 follicles seen on each side. No adnexal masses are seen. IMPRESSION: Unremarkable pelvic ultrasound, without findings of retained products of conception. No abnormal vasc ularity can be seen along the endometrial stripe. Reviewed by: Delmer Cummings MD on 02/29/2020 3:52 PM KINJ[facility] Approved by: Delmer Cummings MD on 02/29/2020 3:52 PM KINJAL Station ID: [id number]
== END 2020-02-29 14:32 | disposition home or self-care (01) ==
LOC: DI 14:31
PROVIDERS: ATTEND Advanced Practice Midwife
DX: N93.9 Abnormal uterine and vaginal bleeding, unspecified (principal)
CPT/HCPCS: 76830; 76856

== ENCOUNTER 2020-03-19 14:28 | Outpatient (CLI) | payer OTHER, MEDICAID ==
[2020-03-19 15:13] LABS: BASOPHILS # (AUTO) 0.1 10^3/uL (0.0-0.1); BASOPHILS % (AUTO) 0.7 %; EOSINOPHILS # (AUTO) 0.3 10^3/uL (0.0-0.7); EOSINOPHILS % (AUTO) 3.5 %; HGB - HEMOGLOBIN 13.3 g/dL (12.0-16.0); LYMPHOCYTES # (AUTO) 2.8 10^3/uL (1.5-3.5); MEAN CORPUSCULAR HEMOGLOBIN 29.2 pg (27.0-31.0); MEAN CORPUSCULAR HGB CONC 33.3 g/dL (32.0-36.0); MEAN CORPUSCULAR VOLUME 87.7 fL (81.0-99.0); MEAN PLATELET VOLUME 11.2 fL (7.9-10.8); MONOCYTES # (AUTO) 0.7 10^3/uL (0.0-1.0); MONOCYTES % (AUTO) 8.1 %; NEUTROPHILS # (AUTO) 4.2 10^3/uL (1.5-6.6); NEUTROPHILS % (AUTO) 52.3 %; PLT - PLATELET COUNT 300 10^3/uL (130-450); RED BLOOD COUNT 4.56 10^6/uL (4.20-5.40); RED CELL DISTRIBUTION WIDTH 13.9 % (12.0-15.0)
== END 2020-03-19 14:29 | disposition home or self-care (01) ==
LOC: LAB 14:28
PROVIDERS: ATTEND Advanced Practice Midwife
DX: N93.9 Abnormal uterine and vaginal bleeding, unspecified (principal)
CPT/HCPCS: 36415; 84702; 85025

== ENCOUNTER 2020-04-02 07:00 | Outpatient (CLI) | payer OTHER, MEDICAID ==
[2020-04-02 19:52] LABS: CANDIDA GROUP DNA NEGATIVE (NEGATIVE); CANDIDA KRUSEI DNA NEGATIVE (NEGATIVE); TRICHOMONAS VAGINALIS DNA NEGATIVE (NEGATIVE)
== END 2020-04-02 23:59 | disposition home or self-care (01) ==
LOC: LAB.R 07:00
PROVIDERS: ATTEND Advanced Practice Midwife
DX: N89.8 Other specified noninflammatory disorders of vagina (principal)
CPT/HCPCS: 87661; 87801